=== PATIENT | female | born 1955 | race African-American/Black ===

== ENCOUNTER 2020-12-13 08:52 | Day surgery (SDC) | payer MEDICARE ==
[~2020-12-13] VITALS: Ht 167.6 cm; Wt 104.5 kg
--- NOTE | ~2020-12-13 | OP ---
PATIENT NAME: ADAIR OGLESBY MEDICAL RECORD: [id number] :59 LOCATION:[facility] ADMISSION DATE: SURGEON: TIM BENNETT DO DATE OF OPERATION: 12/13/2020 PROCEDURE: Colonoscopy. INDICATION FOR PROCEDURE: Generalized abdominal pain, change in bowel habits, family history positive for colon cancer in the patient's grandmother, history of colon polyps. SCOPE: Olympus video pediatric colonoscope. MEDICATIONS: Propofol 500 mg IV per anesthesia. WITHDRAWAL TIME: 10 minutes. ESTIMATED BLOOD LOSS: None. COMPLICATIONS: None. FINDINGS: Informed consent was given. The patient was made comfortable with the above medication. After reaching an adequate level of sedation by slow IV push, the patient was placed on her left side. A digital rectal examination was performed and was normal. The endoscope was then advanced under direct visualization through the rectum to the cecum, confirmed by the presence of the appendiceal orifice and ileocecal valve. The endoscope was slowly withdrawn, and the mucosa was carefully examined. The prep quality was good. There were no polyps visualized on today's examination. Retroflexion was performed in the rectum with visualization of grade I internal hemorrhoids without bleeding. The endoscope was withdrawn from the patient. The patient tolerated the procedure well and there were no complications. IMPRESSION: 1. Grade I internal hemorrhoids without bleeding. 2. Otherwise, normal colonoscopy to cecum. PLAN AND RECOMMENDATIONS: 1. Discharge home when recovery parameters are met. 2. High fiber diet. 3. Continue current medications. 4. Schedule the patient for EGD regarding upper digestive symptoms. 5. Recall colonoscopy in 5 years based on a history of colon polyps. TRANSINT:[id number] Voice Confirmation ID: [id number] DOCUMENT ID: [id number] TIM BENNETT DO CC: [id number] DICTATION DATE: 12/13/20 1043 ARCHERY INSTRUCTOR: 12/13/20 1817 [facility] 12/13/20 [place] [id number] [place] [id number]
[2020-12-13 09:27] LABS: HEMATOCRIT 40.8 % (36.0-48.0); HEMOGLOBIN 13.5 g/dL (12-16); MCHC 33.1 g/dL (31.0-37.0); MCV 84.6 fL (80.0-100.0); MEAN PLATELET VOLUME 9.2 fL (7.4-10.4); RBC 4.82 10x6/uL (4.00-5.40); RDW 14.5 % (11.5-14.5); WBC 9.8 10x3/uL (4.8-10.8)
[2020-12-13 09:40] LABS: ANION GAP 9.6 mmol/L (8-16); CALCIUM 9.9 mg/dL (8.5-10.1); CARBON DIOXIDE 33.2 mmol/L (21.0-32.0)
[2020-12-13] MEDS ORDERED: ABILIFY10 MG PO ×2 (09:43→09:45)
[2020-12-13] MEDS ORDERED: XANAX1 MG PO (09:44)
[2020-12-13 09:45] LABS: POTASSIUM - SERUM 2.8 mmol/L (3.5-5.1)
[2020-12-13] MEDS ORDERED: ASPIRIN EC81 MG PO (09:45)
[2020-12-13] MEDS ORDERED: BACLOFEN10 MG PO (09:46)
[2020-12-13] MEDS ORDERED: LIPITOR40 MG PO (09:46)
[2020-12-13] MEDS ORDERED: BUPROPION HCL150 M1 PO (09:46)
[2020-12-13] MEDS ORDERED: ESTRACE1 MG PO (09:47)
[2020-12-13] MEDS ORDERED: CHLORTHALIDONE25 MG PO (09:47)
[2020-12-13] MEDS ORDERED: CELEXA20 MG PO (09:47)
[2020-12-13] MEDS ORDERED: HYDROCODON-ACE1 EA10 PO (09:48)
[2020-12-13] MEDS ORDERED: KLOR-CON M2020 MEQ (09:48)
[2020-12-13] MEDS ORDERED: MOTRIN600 MG (09:48)
[2020-12-13 09:49] VITALS: BP 143/86; Ht 167.6 cm; Wt 104.5 kg
[2020-12-13] MEDS ORDERED: REQUIP0.25 MG (09:49)
[2020-12-13] MEDS ORDERED: DITROPAN XL 1010 MG PO (09:49)
[2020-12-13] MEDS ORDERED: OMEPRAZOLE20 M1 PO (09:49)
[2020-12-13] MEDS ORDERED: VITAMIN D-40010 MCG PO (09:50)
[2020-12-13] MEDS ORDERED: VENTOLIN HFA [SP8 GM INH (09:50)
[2020-12-13] MEDS ORDERED: TENORMIN25 MG (09:56)
[2020-12-13] MEDS ORDERED: LISINOPRIL10 MG PO (09:57)
--- NOTE | 2020-12-13 11:54 | NUR ---
IV D/C'D WITH CANNULA INTACT, PRESSURE HELD AND DRSG PLACED. DISCHARGE INSTRUCTIONS GIVEN AND PT VERBALIZED AN UNDERSTANDING.
== END 2020-12-13 11:30 | disposition home or self-care (01) ==
LOC: D.OPS 08:52
PROVIDERS: Anesthesiology; ATTEND Internal Medicine Gastroenterology
DX: R10.84 Generalized abdominal pain (principal); R19.4 Change in bowel habit; Z80.0 Family history of malignant neoplasm of digestive organs; Z86.010 Personal history of colon polyps; K64.0 First degree hemorrhoids; R13.10 Dysphagia, unspecified; R14.0 Abdominal distension (gaseous); K21.9 Gastro-esophageal reflux disease without esophagitis; K22.70 Barrett's esophagus without dysplasia